=== PATIENT | female | born 1965 | race African-American/Black ===

== ENCOUNTER 2021-08-12 18:48 | Emergency (ER) | payer MEDICARE, MEDICAID, SELFPAY ==
[2021-08-12 18:50] VITALS: BP 172/110; PULSE 94; RESP 18; TEMP 36.1; O2SAT 95; BMI 41.5
[2021-08-12 19:10] VITALS: BP 175/89; PULSE 90; RESP 16; O2SAT 99
--- NOTE | 2021-08-12 19:57 | EDS_ITS ---
HPI History of Present Illness Chief Complaint: Anxiety Informant: patient and family Narrative Narrative: Patient and sister give histories. The sister states the patient has been acting kind of differently for a few days. She will sometimes be paranoid acting as if her sister is trying to take over her mother's affects her life. Other times the patient's just fine. No reported suicidal homicidal behavior. They both agree the patient's never had psychiatric illnesses. Both agree that the patient is under a lot of stress. She is homeless for the last 1 day. She is now staying down here with her sister. The patient is from [place]. She states this is very stressful. She also states that their mother just went in the hospital with COVID and she is very scared about this. She was taking care of her mother prior to this. She admits that sleep has not been as good. She does feel very stressed. But she does not feel like she needs help. Even the patient's sister states she does not need to come in the hospital but she does need counseling or something to help her. They both agree that there are no physical complaints. No new issues. 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 She has unsteadiness in gait related to this and uses a Rollator. This is not new. [facility] Medical History Hypertension Home Medications amlodipine 08/12/21 [History Last Taken Unknown] Allergy/AdvReac Type Severity Reaction Status Date / Time No Known Allergies Allergy Verified 08/12/21 18:53 Surgical History History of right knee joint replacement Social History Smoking Status: Current every day smoker tobacco type: e-cigarettes ROS ROS ED Constitutional Constitutional ED: Denies chills or fever(s) Eyes Eyes: Denies blurry vision or diplopia ENT ENT ED: Denies rhinorrhea Cardiovascular Cardiovascular: Denies chest pain or palpitations Respiratory/Chest Respiratory/Chest: Denies cough or dyspnea Gastrointestinal Gastrointestinal: Denies diarrhea, nausea or vomiting Genitourinary Genitourinary ED: Denies dysuria Musculoskeletal Musculoskeletal: Denies myalgias Integumentary Denies rash Neurologic Neurologic: Denies headache(s), paresthesias or weakness Psychiatric Psychiatric: Reports anxiety and other Details: See history of present illness ; Denies depression, suicidal ideation or suicidal thoughts Endocrine Endocrinology: Denies polydipsia or polyuria Allergic/Immunologic Allergic/Immunologic ED: Denies mouth swelling or urticaria EXAM Physical Exam Const Vital Signs: 08/12/21 18:50 08/12/21 19:10 08/12/21 20:13 Temperature 97 F L Temperature Source Temporal Pulse Rate 94 90 81 Respiratory Rate 18 16 Blood Pressure 172/110 H 175/89 H 163/87 H Blood Pressure Mean 130 117 Pulse Ox 95 99 99 Oxygen Delivery Method Room Air Room Air Positive well nourished and well developed General Appearance ED: well developed and NAD; Negative for cyanotic or diaphoretic HEENT Reports moist mucous membranes; Denies dry mucous membranes Mouth ED: No dry mucous membranes Mouth: No dry mucous membranes Eyes General Eye ED: Negative for pale conjunctiva Neck no JVD Resp normal respiratory effort and clear to auscultation bilaterally Cardio regular rate and regular rhythm GI normal to inspection, nondistended, normoactive bowel sounds Palpation: soft Neuro oriented x3 Sensorium / Orientation: alert; Negative for orientation impaired, lethargic or stuporous Motor Exam: Negative for strength abnormal Psych mental status grossly normal Psych Narrative: Patient is actually awake alert and appropriate. She makes excellent eye contact. She is calm and relaxed. She gives a very clear history. I get no flight of ideas. I get no indication of paranoia at this time. No sign of suicidal homicidal ideation. Attitude: No agitated Mood & Affect: Negative for depressed, anxious or tearful Skin no rashes or lesions noted MDM MDM MDM Narrative Medical decision making narrative: I explained to both the patient and her sister that I think the patient likely is under a lot of stress. She may be having some abnormal reactions to this that are different than her normal behavior. However, I have no indication that she requires admission. I cannot mandate an admission in any way. They are comfortable with getting resources for counseling. I think this is a reasonable option. Certainly if symptoms get worse, she develops continual paranoia, aggression, suicidal homicidal thoughts we may need to see her again. However, she has no history of prior psychiatric illness or treatment. They both agree on this point. We had social work see the patient and discussed options for follow-up. Discharge Plan Triage Chief Complaint: Anxiety ED Provider: Ezra Burgos Dx/Rx/DC Orders Clinical Impression: Acute stress reaction Instructions: [place] to Managing Stress Prescriptions: No Action amlodipine RF: 0 Primary Care Provider: Care Physician,No Primary Referrals: Han Fernando MD [STAFF PHYSICIAN] - As Needed Care Physician,No Primary [Primary Care Provider] - Disposition Disposition: Home, Self Care Discharge Date/Time: 08/12/21 20:18
--- NOTE | 2021-08-12 20:00 | CM.ED ---
SOCIAL WORK Referral Source: Dr. Burgos Reason for Consult: Mental Health Resources Met with patient and patient's sister in room. Introduced role and reason for referral. Patient admits to history of anxiety and stressing. Patient states originally from [place] and was saved by my sister. Patient states was going to be homeless, but is able to stay with sister. Patient reports no primary care as she was not going to the doctor in [place]. Sister wanting patient to get help. Patient denies any suicidal or homicidal ideation. Patient admits to smoking marijuana and sometimes drinks. Patient denies any need for detox from alcohol. Patient given information on [facility]. Patient provided with list of local PCP's as plan is to stay with sister, per sister. Patient also given [facility] resource list for any further needs. Plan: Home with sister and resources provided Caty Isabel MSW, GROUP HOME COUNSELOR
[2021-08-12 20:13] VITALS: BP 163/87; PULSE 81; O2SAT 99
== END 2021-08-12 20:18 | disposition home or self-care (01) ==
PROVIDERS: Emergency Provider Emergency Medicine; Visit Provider Emergency Medicine
DX: F41.9 Anxiety disorder, unspecified (principal); F17.290 Nicotine dependence, other tobacco product, uncomplicated; Z59.00 Homelessness unspecified; Z96.659 Presence of unspecified artificial knee joint
CPT/HCPCS: 99282